=== PATIENT | female | born 1995 | race Caucasian/White ===

== ENCOUNTER 2020-07-23 07:00 | Emergency (ER) | payer MEDICAID ==
[~2020-07-23] VITALS: Ht 170.2 cm; Wt 127.5 kg
[2020-07-23 07:06] VITALS: BP 116/63
[2020-07-23] MEDS ORDERED: ONDANSETRON 4 MG/2 ML VIAL IVP ONE (07:20)
[2020-07-23] MEDS ORDERED: HYDROcodone/APAP 10/325 MG 1 TAB TAB PO ONE (07:20)
[2020-07-23 09:51] LABS: BASOPHILS % (AUTO) 0.3 % (0.0-2.0); EOSINOPHILS % (AUTO) 0.4 % (0.0-4.0); HEMATOCRIT 37.8 % (36-48); HEMOGLOBIN 12.9 g/dL (12.0-16.0); LYMPHOCYTES # (AUTO) 1.1 K/uL (2.5-16.5); MEAN CORPUSCULAR HEMOGLOBIN 30 pg (27-31); MEAN CORPUSCULAR HGB CONC 34 g/dL (33-37); MEAN CORPUSCULAR VOLUME 87.8 fL (80-94); MONOCYTES # (AUTO) 0.6 K/uL (0.8-1.0); MONOCYTES % (AUTO) 5.5 % (1.7-9.3); NEUTROPHILS # (AUTO) 8.5 K/uL (1.8-7.7); NEUTROPHILS % (AUTO) 82.8 % (42.2-75.2); PLATELET COUNT (AUTO) 229 K/uL (140-450); RED CELL DISTRIBUTION WIDTH 12.7 % (11.6-13.7); WHITE BLOOD COUNT (AUTO) 10.2 K/uL (4.8-10.8)
[2020-07-23 10:09] LABS: ALBUMIN 3.1 g/dL (3.4-5.0); ANION GAP 10.5 (8-16); CREATININE 0.7 mg/dL (0.6-1.3); POTASSIUM 3.5 mmol/L (3.5-5.1); TOTAL BILIRUBIN 0.4 mg/dL (0.0-1.0)
[2020-07-23 10:39] LABS: BILIRUBIN,URINE NEGATIVE (NEGATIVE); BLOOD, URINE 2+ (NEGATIVE); COLOR,URINE YELLOW (YELLOW); LEUKOCYTE ESTERASE ,URINE 1+ (NEGATIVE); NITRITE, URINE NEGATIVE (NEGATIVE); UGLUCOSE NEGATIVE (NEGATIVE)
[2020-07-23 10:41] LABS: APPEARANCE,URINE HAZY (CLEAR)
[2020-07-23 11:29] VITALS: BP 113/73
== END 2020-07-23 11:28 | disposition home or self-care (01) ==
LOC: MED 07:00
DX: K52.89 Other specified noninfective gastroenteritis and colitis (principal); N13.8 Other obstructive and reflux uropathy; N39.0 Urinary tract infection, site not specified; Z91.013 Allergy to seafood
CPT/HCPCS: 36415; 74176; 76830; 76856; 80053; 81001; 81025; 83690; 84703; 85025; 87086; 96374; 99285; J2405; Q0092

== ENCOUNTER 2020-09-19 11:21 | Emergency (ER) | payer MEDICAID ==
[~2020-09-19] VITALS: Ht 172.7 cm; Wt 128.8 kg
[2020-09-19 11:38] VITALS: BP 109/75
--- NOTE | 2020-09-19 11:43 | NUR ---
AMBULATED TO BED 4
--- NOTE | 2020-09-19 11:44 | NUR ---
25 Y/O F BIB SELF WITH C/O OF RASH AND ITCHINESS TO HANDS. A&OX4. PT STATED SHE WOKE UP THIS MORNING WITH GENERALIZED RASH X 2 DAYS. PT STATES 12/4 SWELLING TO LIPS OF UNKNOWN CAUSE. SHE STATED SHE TOOK 10MG BENADRYL WITH NO RELIEF. NO RASH VISUALIZED ON HANDS. AIRWAY INTACT WITH V/S STABLE. BED LOCKED AT LOWEST POSITION WITH SIDE RAILS X1. PMH: DENIES RX: DENIES ALLERGIES: DENIES
--- NOTE | 2020-09-19 11:54 | NUR ---
ERMD AT BEDSIDE
[2020-09-19] MEDS ORDERED: predniSONE 20 MG TAB PO ONE (12:00)
[2020-09-19 12:06] VITALS: BP 115/53
--- NOTE | 2020-09-19 12:06 | NUR ---
Patient discharged with v/s stable. Written and verbal after care instructions given and explained. Patient alert, oriented and verbalized understanding of instructions. Ambulatory with steady gait. All questions addressed prior to discharge. ID band removed. Patient advised to follow up with PMD. Rx of Hydrocortisone Topical Cream, Prednisone given. Patient educated on indication of medication including possible reaction and side effects. Opportunity to ask questions provided and answered.
== END 2020-09-19 12:06 | disposition home or self-care (01) ==
LOC: MED 11:21
DX: T78.40XA Allergy, unspecified, initial encounter (principal); X58.XXXA Exposure to other specified factors, initial encounter
CPT/HCPCS: 99283; J7512

== ENCOUNTER 2020-09-19 14:31 | Emergency (ER) | payer MEDICAID ==
[~2020-09-19] VITALS: Ht 175.3 cm; Wt 129.3 kg
[2020-09-19 14:38] VITALS: BP 128/57
--- NOTE | 2020-09-19 14:40 | NUR ---
PT WANTS TO BE RECHECKED FOR ALLERGIC REACTION THAT HAS SPREAD TO BOTH FEET AND LIPS. PET PT - SHE WAS JUST D/C AROUND NOON AFTER BEING GIVEN PREDNISONE AND SENT HOME W RX. SHE FILLED HER RX BUT HAS NOT USED IT YET. HIVES NOTED TO BILAT FEET. BED IN LOW POSITION, SIDE RAIL UP X1
--- NOTE | 2020-09-19 14:45 | NUR ---
ERMD AT BEDSIDE
[2020-09-19] MEDS ORDERED: diphenhydrAMINE 50 MG/ML VIAL IM ONE (14:50)
[2020-09-19 15:21] VITALS: BP 128/57
--- NOTE | 2020-09-19 15:22 | NUR ---
Patient discharged with v/s stable. Written and verbal after care instructions given and explained. Patient alert, oriented and verbalized understanding of instructions. Ambulatory with steady gait. All questions addressed prior to discharge. ID band removed. Patient advised to follow up with PMD. Rx of BENADRYL given. Patient educated on indication of medication including possible reaction and side effects. Opportunity to ask questions provided and answered.
== END 2020-09-19 15:22 | disposition home or self-care (01) ==
LOC: MED 14:31
DX: L50.9 Urticaria, unspecified (principal); Z91.010 Allergy to peanuts
CPT/HCPCS: 96372; 99283; J1200

== ENCOUNTER 2021-12-12 17:55 | Emergency (ER) | payer MEDICAID, OTHER ==
[~2021-12-12] VITALS: Ht 175.3 cm; Wt 127.9 kg
[2021-12-12 18:09] VITALS: BP 153/90
--- NOTE | 2021-12-12 18:39 | NUR ---
NANCY MCDONALD AT PT BEDSIDE
--- NOTE | 2021-12-12 18:42 | NUR ---
26 Y/O FEMALE BIB SELF C/O FASCIAL NUMBNESS FOR APPROX. 2 DAYS. PT DENIES DENIES BLURRY VISION, N/D/D, SOB, COUGH FEVER OR CHILLS. 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 PT HAS SENSATION TO TOUCH. PT IS A&O X4. BED IS LOWEST POSITION AND CALL LIGHT IS WITHIN REACH. PMH: DENIES ALLERGY: PENUTS, SEAFOOD MEDS: DENIES
--- NOTE | 2021-12-12 19:02 | NUR ---
BLOODWORK COLLECTED AND WALKED TO LAB
[2021-12-12 19:11] LABS: BASOPHILS # (AUTO) 0.1 K/uL (0.00-0.22); BASOPHILS % (AUTO) 0.8 % (0.0-2.0); EOSINOPHILS # (AUTO) 0.3 K/uL (0-0.4); HEMATOCRIT 40.6 % (36-48); HEMOGLOBIN 13.8 g/dL (12.0-16.0); LYMPHOCYTES # (AUTO) 2.5 K/uL (2.5-16.5); LYMPHOCYTES % (AUTO) 18.5 % (20.5-51.1); MEAN CORPUSCULAR HEMOGLOBIN 30 pg (27-31); MEAN CORPUSCULAR HGB CONC 34 g/dL (33-37); MEAN CORPUSCULAR VOLUME 87.6 fL (80-94); MONOCYTES # (AUTO) 0.6 K/uL (0.8-1.0); MONOCYTES % (AUTO) 4.3 % (1.7-9.3); NEUTROPHILS # (AUTO) 10.2 K/uL (1.8-7.7); NEUTROPHILS % (AUTO) 74.4 % (42.2-75.2); PLATELET COUNT (AUTO) 168 K/uL (140-450); RED BLOOD CELL COUNT(AUTO) 4.63 MIL/uL (4.20-5.40); RED CELL DISTRIBUTION WIDTH 12.5 % (11.6-13.7); WHITE BLOOD COUNT (AUTO) 13.7 K/uL (4.8-10.8)
--- NOTE | 2021-12-12 19:24 | NUR ---
REPORT GIVEM TO AUDREY AGUILAR FOR TRANSFER OF CARE
[2021-12-12 19:39] LABS: ALBUMIN 3.7 g/dL (3.4-5.0); ANION GAP 10.7 (8-16); CARBON DIOXIDE 27.9 mmol/L (21-32); CREATININE 0.6 mg/dL (0.6-1.3); POTASSIUM 3.6 mmol/L (3.5-5.1); TOTAL BILIRUBIN 0.3 mg/dL (0.0-1.0)
[2021-12-12] MEDS ORDERED: ATA25 PO (19:45)
[2021-12-12 20:12] VITALS: BP 153/90
--- NOTE | 2021-12-12 20:12 | NUR ---
Patient discharged with v/s stable. Written and verbal after care instructions given and explained. Patient alert, oriented and verbalized understanding of instructions. Ambulatory with steady gait. All questions addressed prior to discharge. ID band removed. Patient advised to follow up with PMD. Rx of Hydroxyzine HCL given. Patient educated on indication of medication including possible reaction and side effects. Opportunity to ask questions provided and answered. VSS, A/OX4, UNLABORED BREATHING, AMBULATORY, AND CALM DEMEANOR.
[2021-12-12] MEDS: NAPROXEN 500 MG TAB PO SCH (20:45)
== END 2021-12-12 20:12 | disposition home or self-care (01) ==
LOC: MED 17:55
DX: F41.9 Anxiety disorder, unspecified (principal); Z91.010 Allergy to peanuts
CPT/HCPCS: 36415; 80053; 81002; 81025; 85025; 99283

== ENCOUNTER 2022-01-28 07:57 | Emergency (ER) | payer OTHER ==
[~2022-01-28] VITALS: Ht 175.3 cm; Wt 128.8 kg
[~2022-01-28 07:57] MED LIST: ATA25 PO
[2022-01-28 08:07] VITALS: BP 121/59
--- NOTE | 2022-01-28 08:10 | NUR ---
PT TO ALEX Askew
--- NOTE | 2022-01-28 08:13 | NUR ---
26 Y/O FEMALE HERE FOR MEDICAL CLEARANCE S/P ANXIETY DX [id number] AGO. PT STATES SHE FEELS MUCH BETTER NOW AND NEEDS MEDICAL CLEARANCE FORM TO BE ABLE TO GO BACK TO WORK AT [employer]. DENIES FEVER/CHILLS. DENIES N/V/D. DENIES PAIN. DENIES SOB. DENIES CHEST PAIN. PMH: ANXIETY ALLERGIES: SEAFOOD AND PEANUTS
[2022-01-28 08:45] VITALS: BP 121/59
--- NOTE | 2022-01-28 08:45 | NUR ---
Patient discharged with v/s stable. Written and verbal after care instructions given FOR MEDICAL SCREENING and explained. Patient verbalized understanding. Ambulatory with steady gait. All questions addressed prior to discharge. Advised to follow up with PMD.
== END 2022-01-28 08:45 | disposition home or self-care (01) ==
LOC: MED 07:57
DX: F41.9 Anxiety disorder, unspecified (principal)
CPT/HCPCS: 81025; 99281; 99282

== ENCOUNTER 2022-03-23 18:53 | Emergency (ER) | payer OTHER ==
[~2022-03-23] VITALS: Ht 175.3 cm; Wt 132.1 kg
[2022-03-23 19:07] VITALS: BP 141/90
--- NOTE | 2022-03-23 19:16 | NUR ---
SORAYA JENKINS EXAMINING PATIENT
[2022-03-23] MEDS ORDERED: HYDR25CA10 PO (19:31)
[2022-03-23] MEDS ORDERED: IBUP-2213 PO (19:33)
[2022-03-23 19:55] VITALS: BP 128/80
--- NOTE | 2022-03-23 19:55 | NUR ---
Patient discharged with v/s stable. Written and verbal after care instructions given and explained. Patient alert, oriented and verbalized understanding of instructions. Ambulatory with steady gait. All questions addressed prior to discharge. ID band removed. Patient advised to follow up with PMD. Rx of HYDROXYZINE given. Patient educated on indication of medication including possible reaction and side effects. Opportunity to ask questions provided and answered.
== END 2022-03-23 19:55 | disposition home or self-care (01) ==
LOC: MED 18:53
DX: R22.0 Localized swelling, mass and lump, head (principal); F41.9 Anxiety disorder, unspecified; Z79.899 Other long term (current) drug therapy; Z91.010 Allergy to peanuts
CPT/HCPCS: 99283

== ENCOUNTER 2022-09-27 10:21 | Emergency (ER) | payer OTHER ==
[~2022-09-27] VITALS: Ht 175.3 cm; Wt 134.7 kg
[~2022-09-27 10:21] MED LIST changes: +HYDR25CA10 PO; +IBUP-2213 PO
[2022-09-27 10:36] VITALS: BP 119/94
[2022-09-27] MEDS: KETOROLAC 30 MG/ML VIAL IM ONE (12:04)
[2022-09-27] MEDS: diazePAM 5 MG TAB PO ONE (12:10)
[2022-09-27] MEDS ORDERED: NAPR-54 PO (12:14)
== END 2022-09-27 12:35 | disposition home or self-care (01) ==
LOC: MED 10:21
DX: M54.42 Lumbago with sciatica, left side (principal); M25.562 Pain in left knee
CPT/HCPCS: 81025; 93971; 96372; 99284; J1885; Q0092

== ENCOUNTER 2022-10-06 09:08 | Emergency (ER) | payer OTHER ==
[~2022-10-06] VITALS: Ht 175.3 cm; Wt 131.5 kg
[~2022-10-06 09:08] MED LIST changes: +NAPR-54 PO
[2022-10-06 09:10] VITALS: BP 132/72
--- NOTE | 2022-10-06 09:14 | NUR ---
PT RECEIVED, CARE ASSUMED. PT PRESENTS SELF TO ER WITH C/O LEFT LEG PAIN. PT STATES THAT SHE WAS DIAGNOSED WITH SCIATICA NERVE PAIN LAST SUNDAY.
--- NOTE | 2022-10-06 09:14 | NUR ---
PT AMBULATED TO BED 2
[2022-10-06] MEDS ORDERED: KETOROLAC 60 MG/2 ML VIAL IM ONE (10:00)
[2022-10-06] MEDS ORDERED: ACET-8905 PO (10:15)
[2022-10-06 10:50] VITALS: BP 129/80
--- NOTE | 2022-10-06 10:51 | NUR ---
Patient discharged with v/s stable. Written and verbal after care instructions given and explained. Patient verbalized understanding. Ambulatory with steady gait. All questions addressed prior to discharge. Advised to follow up with PMD.
== END 2022-10-06 10:23 | disposition home or self-care (01) ==
LOC: MED 09:08
DX: M54.32 Sciatica, left side (principal)
CPT/HCPCS: 96372; 99283; J1885

== ENCOUNTER 2022-10-27 17:09 | Emergency (ER) | payer OTHER ==
[~2022-10-27] VITALS: Ht 175.3 cm; Wt 131.5 kg
[~2022-10-27 17:09] MED LIST changes: +ACET-8905 PO
[2022-10-27 17:18] VITALS: BP 155/117
--- NOTE | 2022-10-27 17:44 | NUR ---
Made call out to ER but no answerx1
[2022-10-27] MEDS ORDERED: ONDANSETRON 4 MG/2 ML VIAL IVP ONE (18:05)
[2022-10-27] MEDS ORDERED: MORPHINE SULFATE 4 MG/ML SYR IVP ONE (18:05)
[2022-10-27] MEDS ORDERED: NACL 0.9% 1,000 ML IV SCH (18:05)
[2022-10-27 18:53] LABS: BASOPHILS % (AUTO) 0.3 % (0.0-2.0); HEMATOCRIT 35.3 % (36-48); HEMOGLOBIN 12.5 g/dL (12.0-16.0); LYMPHOCYTES # (AUTO) 0.6 K/uL (2.5-16.5); LYMPHOCYTES % (AUTO) 4.6 % (20.5-51.1); MEAN CORPUSCULAR HEMOGLOBIN 30 pg (27-31); MEAN CORPUSCULAR HGB CONC 36 g/dL (33-37); MEAN CORPUSCULAR VOLUME 85.5 fL (80-94); MONOCYTES # (AUTO) 0.4 K/uL (0.8-1.0); MONOCYTES % (AUTO) 2.8 % (1.7-9.3); NEUTROPHILS # (AUTO) 12.1 K/uL (1.8-7.7); NEUTROPHILS % (AUTO) 92.3 % (42.2-75.2); PLATELET COUNT (AUTO) 235 K/uL (140-450); RED BLOOD CELL COUNT(AUTO) 4.13 MIL/uL (4.20-5.40); RED CELL DISTRIBUTION WIDTH 12.8 % (11.6-13.7); WHITE BLOOD COUNT (AUTO) 13.1 K/uL (4.8-10.8)
[2022-10-27 19:11] LABS: ALBUMIN 3.8 g/dL (3.4-5.0); ANION GAP 12.1 (8-16); CARBON DIOXIDE 24.1 mmol/L (21-32); CREATININE 0.8 mg/dL (0.6-1.3); POTASSIUM 3.2 mmol/L (3.5-5.1); TOTAL BILIRUBIN 0.4 mg/dL (0.0-1.0)
[2022-10-27 19:20] LABS: PROTHROMBIN TIME 10.9 secs (10.8-13.4)
--- NOTE | 2022-10-27 19:22 | NUR ---
report given to JEFF Shay for continuity of care.
[2022-10-27 19:34] LABS: FREE T4 (FREE THYROXINE) 1.21 ng/dL (0.76-1.46); THYROID STIMULATING HORMONE 0.29 uIU/mL (0.34-3.74)
[2022-10-27] MEDS ORDERED: diphenhydrAMINE 50 MG/ML VIAL IVP ONE (20:50)
[2022-10-27] MEDS ORDERED: KETOROLAC 30 MG/ML VIAL IVP ONE (20:50)
[2022-10-27] MEDS ORDERED: METOCLOPRAMIDE 10 MG/2 ML INJ VIAL IVP ONE (20:50)
[2022-10-27] MEDS ORDERED: DEXAMETHASONE 10 MG/ML VIAL IVP ONE (20:50)
--- NOTE | 2022-10-27 22:00 | NUR ---
SWABS OBTAINED AND SENT TO LAB
[2022-10-27] MEDS ORDERED: LOPE1TAB14 PO (22:13)
[2022-10-27] MEDS ORDERED: ACET-8001 PO (22:13)
[2022-10-27] MEDS ORDERED: ONDA-188 SL (22:13)
[2022-10-27] MEDS ORDERED: ACET-5629 PO (22:13)
[2022-10-27] MEDS ORDERED: AZIT250T4 PO (22:13)
[2022-10-27 22:29] VITALS: BP 123/105
--- NOTE | 2022-10-27 22:30 | NUR ---
Patient discharged with v/s stable. Written and verbal after care instructions given and explained. Patient alert, oriented and verbalized understanding of instructions. Ambulatory with steady gait. All questions addressed prior to discharge. ID band removed. Patient advised to follow up with PMD. Rx of PERCOCET, EXCEDRIN, Z PACK, LOPERAMIDE, AND ZOFRAN given. Patient educated on indication of medication including possible reaction and side effects. Opportunity to ask questions provided and answered.
--- NOTE | 2022-10-30 09:03 | NUR ---
LATE ENTRY -- CONFIRMED WITH PRIMARY NURSE, NS INFUSION BEGINNING 10/27/22 AT 1832 WAS COMPLETED SAME DAY AT 1932
== END 2022-10-27 22:30 | disposition home or self-care (01) ==
LOC: MED 17:09
DX: K52.9 Noninfective gastroenteritis and colitis, unspecified (principal); Z20.822 Contact with and (suspected) exposure to COVID-19; G44.209 Tension-type headache, unspecified, not intractable; E86.0 Dehydration; E87.6 Hypokalemia
CPT/HCPCS: 36415; 71045; 74176; 80053; 82550; 83605; 83690; 84439; 84443; 85025; 85610; 85730; 87040; 87426; 87804; 93005; 96361; 96374; 96375; 99285; J1100; J1200; J1885; J2270; J2405; J2765; J7030

== ENCOUNTER 2023-11-07 04:35 | Emergency (ER) | payer MEDICAID, OTHER ==
[~2023-11-07] VITALS: Ht 170.2 cm; Wt 122.5 kg
[~2023-11-07 04:35] MED LIST changes: +ACET-5629 PO; +ACET-8001 PO; +AZIT250T4 PO; +LOPE1TAB14 PO; +ONDA-188 SL
[2023-11-07 05:48] VITALS: BP 117/95; PULSE 96; RESP 18; TEMP 98.7; O2SAT 96
[2023-11-07 07:22] LABS: BASOPHILS % (AUTO) 0.3 % (0.0-2.0); EOSINOPHILS # (AUTO) 0.1 K/uL (0-0.4); EOSINOPHILS % (AUTO) 1.1 % (0.0-4.0); HEMATOCRIT 38.9 % (36-48); HEMOGLOBIN 13.3 g/dL (12.0-16.0); LYMPHOCYTES % (AUTO) 15.1 % (20.5-51.1); MEAN CORPUSCULAR HEMOGLOBIN 31 pg (27-31); MEAN CORPUSCULAR HGB CONC 34 g/dL (33-37); MEAN CORPUSCULAR VOLUME 90.1 fL (80-94); MONOCYTES # (AUTO) 0.8 K/uL (0.8-1.0); NEUTROPHILS # (AUTO) 10.2 K/uL (1.8-7.7); NEUTROPHILS % (AUTO) 77.5 % (42.2-75.2); PLATELET COUNT (AUTO) 327 K/uL (140-450); RED BLOOD CELL COUNT(AUTO) 4.32 MIL/uL (4.20-5.40); RED CELL DISTRIBUTION WIDTH 13.2 % (11.6-13.7); WHITE BLOOD COUNT (AUTO) 13.1 K/uL (4.8-10.8)
[2023-11-07 07:36] LABS: CALCIUM 8.4 mg/dL (8.5-10.1); CARBON DIOXIDE 28.9 mmol/L (21-32); CREATININE 0.7 mg/dL (0.6-1.3); POTASSIUM 3.9 mmol/L (3.5-5.1)
[2023-11-07 07:41] LABS: APPEARANCE,URINE SL CLOUDY (CLEAR); BILIRUBIN,URINE NEGATIVE (NEGATIVE); BLOOD, URINE 3+ (NEGATIVE); COLOR,URINE RED (YELLOW); LEUKOCYTE ESTERASE ,URINE 2+ (NEGATIVE); NITRITE, URINE POSITIVE (NEGATIVE); PROTEIN,URINE 3+ (NEGATIVE); UGLUCOSE TRACE (NEGATIVE)
[2023-11-07 07:43] LABS: INR 0.94 (0.8-1.2); PROTHROMBIN TIME 9.9 secs (10.8-13.4)
[2023-11-07 08:02] LABS: BACTERIA,URINE 1+ /HPF (None Seen); MUCUS,URINE 1+ /LPF (None Seen); SQUAMOUS EPITHELIAL CELL,UR 0-3 (FEW) /LPF (0-3 (FEW))
[2023-11-07] MEDS ORDERED: CEPH-588 PO (08:21)
[2023-11-07 08:39] VITALS: BP 121/80; PULSE 88; RESP 18; TEMP 98.7; O2SAT 98
== END 2023-11-07 08:39 | disposition home or self-care (01) ==
LOC: MED 04:35
DX: N39.0 Urinary tract infection, site not specified (principal); N93.8 Other specified abnormal uterine and vaginal bleeding; Z79.899 Other long term (current) drug therapy; Z79.1 Long term (current) use of non-steroidal anti-inflammatories (NSAID); Z79.2 Long term (current) use of antibiotics; Z91.010 Allergy to peanuts
CPT/HCPCS: 36415; 76856; 80048; 81001; 81025; 85025; 85610; 86886; 86900; 86901; 87086; 99284; Q0092